=== PATIENT | female | born 1995 | race Caucasian/White ===

== ENCOUNTER 2020-10-24 15:01 | Emergency (ER) | payer OTHER ==
[~2020-10-24] VITALS: Ht 165.1 cm; Wt 53.0 kg
[2020-10-24] MEDS ORDERED: AMOX500C PO (18:20)
[2020-10-24] MEDS ORDERED: PRED20TA PO (18:20)
[2020-10-24] MEDS ORDERED: POLY119P4 PO (18:20)
[2020-10-24 18:42] VITALS: BP 114/74
== END 2020-10-24 18:45 | disposition home or self-care (01) ==
LOC: ER 15:01
DX: J18.9 Pneumonia, unspecified organism (principal); J45.901 Unspecified asthma with (acute) exacerbation; K59.00 Constipation, unspecified; R21 Rash and other nonspecific skin eruption
CPT/HCPCS: 36415; 71046; 74177; 80053; 81001; 81025; 83690; 85007; 85025; 94640; 96360; 99285; J7030; J7512; Q9967

== ENCOUNTER 2020-12-15 10:26 | Emergency (ER) | payer OTHER ==
[~2020-12-15] VITALS: Ht 165.1 cm; Wt 53.0 kg
[~2020-12-15 10:26] MED LIST: AMOX500C PO; POLY119P4 PO; PRED20TA PO
[2020-12-15 10:39] VITALS: BP 127/81
[2020-12-15] MEDS ORDERED: PRED-220 PO (10:52)
--- NOTE | 2020-12-15 10:53 | PHYS DOC ---
Past History Past Medical History: Asthma, Other Additional Past Medical Histor: environmental allergies Past Surgical History: No Surgical History Alcohol Use: None General Adult EDM: Chief Complaint: SKIN PROBLEM HPI: HPI: 25-year-old female presents with rash. The patient states that she started to see this rash on her arms and legs yesterday morning. It has gotten much worse by this morning. It is itchy. She is able to control the pruritus with her seasonal allergy medications. The patient does not believe she has had any new exposures. She has environmental allergies to some pollen and that is why she takes allergy medication. She denies any extended periods of time in the [place] around unusual plants. She has been outside walking. She has been in the grass in her yard but not playing in the grass or rubbing on her skin. The rash is only on her upper and lower extremities. She does not have any on her core or face. There are scattered little red dots. She is not sure where the first 1 appeared. She denies fever or chills. Review of Systems: Review of Systems: Constitutional: Denies fever or chills Eyes: Denies change in visual acuity HENT: Denies nasal congestion or sore throat Respiratory: Denies cough or shortness of breath Cardiovascular: Denies chest pain or edema GI: Denies abdominal pain, nausea, vomiting, bloody stools or diarrhea : Denies dysuria Musculoskeletal: Denies back pain or joint pain Integument: Rash Neurologic: Denies headache, focal weakness or sensory changes Endocrine: Denies polyuria or polydipsia Lymphatic: Denies swollen glands Psychiatric: Denies depression or anxiety Allergies: Allergies: Allergies Coded Allergies Type Severity Reaction Last Updated Verified No Known Drug Allergies 10/24/20 No Physical Exam: PE: Constitutional: Well developed, well nourished, no acute distress, non-toxic appearance. [] HENT: Normocephalic, atraumatic, bilateral external ears normal, oropharynx moist, no oral exudates, nose normal. [] Eyes: PERRLA, EOMI, conjunctiva normal, no discharge. [] Neck: Normal range of motion, no tenderness, supple, no stridor. [] Cardiovascular:Heart rate regular rhythm, no murmur [] Lungs & Thorax: Bilateral breath sounds clear to auscultation [] Abdomen: Bowel sounds normal, soft, no tenderness, no masses, no pulsatile masses. [] Skin: Many erythematous papules 1 to 3 mm in size all over her bilateral upper and lower extremities in an exposed skin distribution, but no pattern. [] Back: No tenderness, no CVA tenderness. [] Extremities: No tenderness, no cyanosis, no clubbing, ROM intact, no edema. [] Neurologic: Alert and oriented X 3, normal motor function, normal sensory function, no focal deficits noted. [] Psychologic: Affect normal, judgement normal, mood normal. [] Current Patient Data: Vital Signs: Vital Signs Date Time Temp Pulse Resp B/P (MAP) Pulse Ox O2 Delivery O2 Flow Rate FiO2 12/15/20 10:39 98.2 98 16 127/81 (96) 100 Room Air EKG: EKG: [] Radiology/Procedures: Radiology/Procedures: [] Heart Score: C/O Chest Pain: N/A Risk Factors: Risk Factors: DM, Current or recent (<one month) smoker, HTN, HLP, family history of CAD, obesity. Risk Scores: Score 0 - 3: 2.5% MACE over next 6 weeks - Discharge Home Score 4 - 6: 20.3% MACE over next 6 weeks - Admit for Clinical Observation Score 7 - 10: 72.7% MACE over next 6 weeks - Early Invasive Strategies Course & Med Decision Making: Course & Med Decision Making Pertinent Labs and Imaging studies reviewed. (See chart for details) The patient's rash is unusual. Its distribution was suggests some kind of environmental exposure by contact. I will treat her with steroids for the next 7 days. If the rash does not improve or returns, she may need to see dermatology. The patient has made aware of this. She states verbal understanding. She is stable for discharge at this time. [] Dragon Disclaimer: Draggayatri Disclaimer: This electronic medical record was generated, in whole or in part, using a voice recognition dictation system. Departure Departure: Impression: Primary Impression: Rash Disposition: HOME / SELF CARE / HOMELESS Condition: STABLE Referrals: PCP,CHETNA (PCP) Patient Instructions: Rash, [id number] Scripts Prednisone (PREDNISONE) 10 Mg Tablet 10 MG PO UD for PREDNISONE TAPER, #24 TAB 0 Refills Take 5 tablets by mouth daily for 2 days, then take 4 tablets by mouth daily for 2 days, then take 2 tablets by mouth daily for 2 days, then take 1 tablet by mouth daily for 2 days, then stop. Prov: RAÚL POLLARD DO 12/15/20 RAÚL POLLARD DO Dec 15, 2020 10:52
== END 2020-12-15 11:08 | disposition home or self-care (01) ==
LOC: ER 10:26
DX: R21 Rash and other nonspecific skin eruption (principal); J45.909 Unspecified asthma, uncomplicated
CPT/HCPCS: 99283

== ENCOUNTER 2021-08-03 14:52 | Emergency (ER) | payer OTHER ==
[~2021-08-03] VITALS: Ht 165.1 cm; Wt 53.0 kg
[2021-08-03 14:52] VITALS: BP 114/77
[~2021-08-03 14:52] MED LIST changes: +PRED-220 PO
[2021-08-03] MEDS ORDERED: ONDANSETRON ODT 4 MG TAB.RAPDIS PO ONE (15:15)
[2021-08-03] MEDS ORDERED: KETOROLAC 30 MG/ML VIAL. IVP ONE (15:30)
[2021-08-03] MEDS ORDERED: IV NORMAL SALINE 1,000ML 1,000 ML IV ONE (15:30)
[2021-08-03] MEDS ORDERED: diphenhydrAMINE 50 MG/ML VIAL IVP ONE (15:30)
[2021-08-03] MEDS ORDERED: METOCLOPRAMIDE HCL 10 MG/2 ML VIAL. IVP ONE (15:30)
[2021-08-03] MEDS ORDERED: NAPROXEN 500 MG TABLET PO ONE (15:30)
[2021-08-03 15:42] LABS: INFLUENZA A PATIENT NEGATIVE (NEGATIVE); INFLUENZA B PATIENT NEGATIVE (NEGATIVE)
[2021-08-03] MEDS ORDERED: ONDA4TAB12 PO (15:53)
--- NOTE | 2021-08-03 15:54 | PHYS DOC ---
Past History Past Medical History: Asthma, Other Additional Past Medical Histor: environmental allergies Past Surgical History: No Surgical History Alcohol Use: None General Adult EDM: Chief Complaint: FATIGUE HPI: HPI: 25-year-old female presents with 3-day history of fatigue, body aches, headache, nausea and vomiting. Patient's primary concern is for vomiting and her headache. She has not taken anything for today. She has not been tested for Covid. Review of Systems: Review of Systems: Constitutional: Fever, body aches, fatigue. Eyes: Denies change in visual acuity HENT: Denies nasal congestion or sore throat Respiratory: Cough without shortness of breath Cardiovascular: Denies chest pain or edema GI: Denies abdominal pain, nausea, vomiting, bloody stools or diarrhea : Denies dysuria Musculoskeletal: Generalized back cramping. Integument: Denies rash Neurologic: Headache. Denies focal weakness or sensory changes Endocrine: Denies polyuria or polydipsia Lymphatic: Denies swollen glands Psychiatric: Denies depression or anxiety Current Medications: Current Meds: Current Medications Medications (Trade) Dose Ordered Sig/Makr Start Time Stop Time Status Last Admin Dose Admin Diphenhydramine HCl (Benadryl) 25 mg 1X ONCE 08/03/21 15:30 08/03/21 15:22 DC Ketorolac Tromethamine (Toradol 30mg Vial) 30 mg 1X ONCE 08/03/21 15:30 08/03/21 15:22 DC Metoclopramide HCl (Reglan Vial) 10 mg 1X ONCE 08/03/21 15:30 08/03/21 15:22 DC Naproxen (Naprosyn) 500 mg 1X ONCE 08/03/21 15:30 08/03/21 15:31 DC 08/03/21 15:30 500 MG Ondansetron HCl (Zofran Odt) 4 mg 1X ONCE 08/03/21 15:15 08/03/21 15:24 DC 08/03/21 15:13 4 MG Sodium Chloride 1,000 ml @ 1,000 mls/hr 1X ONCE 08/03/21 15:30 08/03/21 15:22 DC Allergies: Allergies: Allergies Coded Allergies Type Severity Reaction Last Updated Verified No Known Drug Allergies 10/24/20 No Physical Exam: PE: Constitutional: Well developed, well nourished, no acute distress, non-toxic appearance. [] HENT: Normocephalic, atraumatic, bilateral external ears normal, oropharynx moist, no oral exudates, nose normal. [] Eyes: PERRLA, EOMI, conjunctiva normal, no discharge. [] Neck: Normal range of motion, no tenderness, supple, no stridor. [] Cardiovascular: Heart rate regular rhythm, no murmur [] Lungs & Thorax: Bilateral breath sounds clear to auscultation [] Abdomen: Bowel sounds normal, soft, no tenderness, no masses, no pulsatile masses. [] Skin: Warm, dry, no erythema, no rash. [] Back: No tenderness, no CVA tenderness. [] Extremities: No tenderness, no cyanosis, no clubbing, ROM intact, no edema. [] Neurologic: Alert and oriented X 3, normal motor function, normal sensory function, no focal deficits noted. [] Psychologic: Affect normal, judgement normal, mood normal. [] Current Patient Data: Labs: Laboratory Tests Test 08/03/21 15:11 Influenza Type A (Rapid) Negative (NEGATIVE) Influenza Type B (Rapid) Negative (NEGATIVE) SARS-CoV-2 Antigen (Rapid) Negative (NEGATIVE) Vital Signs: Vital Signs Date Time Temp Pulse Resp B/P (MAP) Pulse Ox O2 Delivery O2 Flow Rate FiO2 08/03/21 14:52 98.1 90 114/77 (89) 97 08/03/21 14:52 16 Room Air EKG: EKG: [] Radiology/Procedures: Radiology/Procedures: [] Heart Score: C/O Chest Pain: N/A Risk Factors: Risk Factors: DM, Current or recent (<one month) smoker, HTN, HLP, family history of CAD, obesity. Risk Scores: Score 0 - 3: 2.5% MACE over next 6 weeks - Discharge Home Score 4 - 6: 20.3% MACE over next 6 weeks - Admit for Clinical Observation Score 7 - 10: 72.7% MACE over next 6 weeks - Early Invasive Strategies Course & Med Decision Making: Course & Med Decision Making Pertinent Labs and Imaging studies reviewed. (See chart for details) The patient's rapid COVID and influenza are negative. This could be another viral illness. We have given her 4 mg of Zofran. She has passed a p.o. challenge of fluids and solids. We have also given her 5 mg naproxen for her headache. I will discharge her with Zofran. She is stable for discharge at this time. [] Paulina Disclaimer: Paulina Disclaimer: This electronic medical record was generated, in whole or in part, using a voice recognition dictation system. Departure Departure: Impression: Primary Impression: Viral syndrome Additional Impression: Headache Qualified Codes: R51.9 - Headache, unspecified Disposition: HOME / SELF CARE / HOMELESS Condition: STABLE Referrals: NON,STAFF (PCP) Patient Instructions: Viral Syndrome Scripts Ondansetron (ONDANSETRON ODT) 4 Mg Tab.rapdis 1 TAB PO PRN Q6-8HRS PRN for VOMITING, #16 TAB Prov: RAÚL POLLARD DO 08/03/21 RAÚL POLLARD DO Aug 03, 2021 15:53
== END 2021-08-03 15:58 | disposition home or self-care (01) ==
LOC: ER 14:52
DX: B34.9 Viral infection, unspecified (principal); R51.9 Headache, unspecified; J45.909 Unspecified asthma, uncomplicated; Z20.822 Contact with and (suspected) exposure to COVID-19
CPT/HCPCS: 87428; 99283; Q0162